=== PATIENT | male | born 1980 | race Hispanic/Latino ===

== ENCOUNTER 2016-12-05 21:20 | Emergency (ER) | payer BC, OTHER ==
[2016-12-05 21:59] VITALS: BP 121/80; TEMP 98.3; O2SAT 95
[2016-12-05] MEDS ORDERED: ONDANSETRON ODT 8 MG TAB SL ONE (22:13)
[2016-12-05] MEDS ORDERED: AMOXICILLIN & POT CLAVULANATE 875 MG TAB PO ONE (22:13)
--- NOTE | 2016-12-05 22:15 | ED.PDOC ---
History of Present Illness - General Chief Complaint: GI Problem Stated Complaint: Nausea; Knot in L Axilla Time Seen by Provider: 12/05/16 21:50 Source: patient, RN notes reviewed, Vital Signs reviewed Exam Limitations: no limitations - History of Present Illness Initial Comments: Patient comes in with c/o just generally not feeling well for a week. Fatigue, body aches, chills and a swollen, tender and hot lump in L axilla. + nausea, no vomiting. No URI symptoms. No abd pain or diarrhea. No urinary or penile symptoms. Timing/Duration: 1 week Severity: moderate Improving Factors: nothing Worsening Factors: nothing Associated Symptoms: fever/chills, malaise, nausea/vomiting Allergies/Adverse Reactions: Allergies NO KNOWN ALLERGY Allergy (Verified 12/05/16 21:45) Home Medications: Ambulatory Orders Amoxicillin & Pot Clavulanate [Augmentin] 875 mg PO BID #14 tab 12/05/16 Ondansetron [Zofran Odt] 4 mg PO Q6HR PRN #12 tab 12/05/16 Review of Systems - Review of Systems Constitutional: States: chills, malaise EENTM: States: no symptoms reported Respiratory: States: no symptoms reported. Denies: cough, short of breath Cardiology: States: no symptoms reported Gastrointestinal/Abdominal: States: nausea. Denies: abdominal pain, diarrhea, vomiting Genitourinary: States: no symptoms reported. Denies: discharge, dysuria, frequency Musculoskeletal: States: other - generalized body aches Skin: States: lumps - L axilla: red, hot, tender lump - improving Neurological: States: headache All other Systems: No Change from Baseline Past Medical History (General) - Patient Medical History Hx Stroke: No Hx Congestive Heart Failure: No Hx Diabetes: No Hx Cancer: No Hx Hepatitis C: No Surgical History: no surgical history - Vaccination History Hx Tetanus, Diphtheria Vaccination: No Hx Influenza Vaccination: No Hx Pneumococcal Vaccination: No - Social History Hx Tobacco Use: No Hx Chewing Tobacco Use: No Hx Alcohol Use: No Hx Substance Use: No Hx Substance Use Treatment: No Hx Depression: No Feels Threatened In Home Enviroment: No Feels Threatened In a Relationship: No Hx Physical Abuse: No Hx Emotional Abuse: No Hx Suspected Abuse: No Family Medical History - Family History Grandparents Family History: Unknown Physical Exam - Physical Exam General Appearance: Alert, Comfortable, No apparent distress, Well Developed, Well Groomed, Well Hydrated, Well Nourished Eye Exam: bilateral normal Ears, Nose, Throat: hearing grossly normal, normal ENT inspection, normal pharynx Neck: non-tender, full range of motion, supple, normal inspection Respiratory: lungs clear, normal breath sounds, no respiratory distress, no accessory muscle use Cardiovascular/Chest: regular rate, rhythm, no edema, no gallop, no JVD, no murmur Gastrointestinal/Abdominal: normal bowel sounds, non tender, soft, no organomegaly, no pulsatile mass Extremity: normal range of motion, non-tender, normal inspection, no calf tenderness Neurologic: alert, normal mood/affect, oriented x 3 Skin Exam: normal color, warm/dry, other - L axilla: area of induration, erythema and tenderness Lymphatic: no adenopathy Comments: Vital Signs 12/05/16 21:30 Temperature 98.3 F Pulse Rate [L 63 Arm] Respiratory 20 Rate Blood Pressure 121/80 [L Arm] O2 Sat by Pulse 95 Oximetry Progress - EKG/XRAY/CT CT Ordered: No CT Interpretation Call Back: No Departure - Departure Clinical Impression: Hidradenitis suppurativa of left axilla Time of Disposition: 22:30 Disposition: Discharge to Home or Self Care Condition: Good Departure Forms: ED Discharge - Pt. Copy, Patient Portal Self Enrollment Instructions: Hidradenitis Suppurativa Diet: resume usual diet Activity: increase activity as tolerated Referrals: Javan Chan MD [Primary Care Provider] - 1-2 Weeks Prescriptions: Ondansetron [Zofran Odt] 4 mg PO Q6HR PRN #12 tab PRN Reason: Nausea/Vomiting Amoxicillin & Pot Clavulanate [Augmentin] 875 mg PO BID #14 tab Home Medications: Ambulatory Orders Amoxicillin & Pot Clavulanate [Augmentin] 875 mg PO BID #14 tab 12/05/16 Ondansetron [Zofran Odt] 4 mg PO Q6HR PRN #12 tab 12/05/16
== END 2016-12-05 22:40 | disposition home or self-care (01) ==
LOC: ER 21:20
DX: L73.2 Hidradenitis suppurativa (principal); R11.0 Nausea

== ENCOUNTER → 2017-02-24 | Outpatient (CLI) | payer BC | END | disposition home or self-care (01) | LOC: GMAM 11:13 | PROVIDERS: ATTEND Family Medicine | DX: R53.82 Chronic fatigue, unspecified (principal) ==

== ENCOUNTER → 2017-08-27 | Outpatient (CLI) | payer BC | LOC: GMAM 11:30 | PROVIDERS: ATTEND Family Medicine | DX: Z00.00 Encounter for general adult medical examination without abnormal findings (principal); R31.21 Asymptomatic microscopic hematuria ==

== ENCOUNTER → 2017-10-29 | Outpatient (CLI) | payer BC | LOC: GMAM 14:34 | PROVIDERS: ATTEND Family Medicine | DX: K62.5 Hemorrhage of anus and rectum (principal) ==